=== PATIENT | female | born 1990 | race American Indian/Alaskan Native ===

== ENCOUNTER 2016-10-15 23:15 | Emergency (ER) | payer OTHER ==
[2016-10-15 23:48] VITALS: BMI 27.4
[2016-10-16 00:04] VITALS: BP 117/71; PULSE 67; RESP 18; TEMP 99.2; O2SAT 97
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
== END 2016-10-16 01:05 | disposition home or self-care (01) ==
LOC: ED 23:15
DX: S00.33XA Contusion of nose, initial encounter (principal); Y04.0XXA Assault by unarmed brawl or fight, initial encounter; Y93.89 Activity, other specified; Y92.89 Other specified places as the place of occurrence of the external cause; Y99.8 Other external cause status